=== PATIENT | female | born 1950 | race Caucasian/White ===

== ENCOUNTER 2023-10-28 08:09 | Day surgery (SDC) | payer OTHER, SELFPAY ==
[2023-10-25 12:38] VITALS: BMI 20.7
[2023-10-28] VITALS (13 sets, daily range): BP systolic 105–135; BP diastolic 50–72; PULSE 53–103; RESP 12–18; TEMP 35.8–36.8; O2SAT 98–100; BMI 20.7
--- NOTE | 2023-10-28 | DI.RAD.S_ITS ---
PROCEDURE: XR HIP W PEL IF DONE RT 2V INDICATIONS: RT ANTERIOR HIP TECHNIQUE: 2 view(s) of the hip acquired. COMPARISON: [facility], [place], XR HIP W PEL IF DONE RT 2V, 10/28/2023, 12:08. FINDINGS: Bones: Patient is status post right hip arthroplasty, with hardware components in expected positions. The hip joint appears congruent. The visualized bony structures appear intact. Soft tissues: Overlying postoperative changes are noted. No suspicious soft tissue densities. IMPRESSION: Expected post-operative appearance of a hip arthroplasty. Dictated by: Garcia Hernandez M.D. on 10/28/2023 at 18:49 Approved by: Garcia Hernandez M.D. on 10/28/2023 at 18:49
--- NOTE | 2023-10-28 07:50 | DI.RAD.S_ITS ---
PROCEDURE: XR HIP W PEL IF DONE RT 2V INDICATIONS: KERI TECHNIQUE: Intraoperative views during right hip arthroplasty. COMPARISON: None. FINDINGS: Bones: Intraoperative views during right hip arthroplasty demonstrate expected location hardware. IMPRESSION: Intraoperative views during right hip arthroplasty demonstrate expected location hardware. Dictated by: Luis Adams M.D. on 10/30/2023 at 10:37 Approved by: Luis Adams M.D. on 10/30/2023 at 10:37
--- NOTE | 2023-10-28 09:43 | PM.PREOP ---
Pre-operative Note Interval Note History & Physical reviewed/Exam performed by Physician: Yes Changes to H&P: No
[2023-10-28] MEDS: ACETAMINOPHEN 325 MG TABLET 975 MG PO (10:22)
[2023-10-28] MEDS: LACTATED RINGERS 1,000 ML 84 ML IV ×2 (10:22→12:54)
[2023-10-28] MEDS: MELOXICAM 7.5 MG TABLET PO (10:23)
[2023-10-28] MEDS: PHENYTOIN ER 100 MG CAPSULE PO ×3 (10:24→20:47)
[2023-10-28] MEDS: PRIMIDONE 50 MG TABLET 250 MG PO ×3 (10:33→20:48)
[2023-10-28] MEDS: CEFAZOLIN 2 GM/100 ML PREMIX 100 ML IV ×2 (11:20→19:56)
[2023-10-28] MEDS: TRANEXAMIC ACID 1,000 MG VIAL 1000 MG INJ ×2 (11:26→13:15)
--- NOTE | 2023-10-28 11:52 | SUR.OPER ---
Supine on padded [place] table with bilateral legs secured in padded positioning boots and suspended in positioning spars, operative leg in traction per surgeon. Head on one pillow. Arms on non-operative side secured on padded armboards <90 degrees abduction. Padded perineal post in place per surgeon.
[2023-10-28] MEDS: ROPIVACAINE/EPI/CLONIDINE/KET 50 ML SYRINGE INJ (12:03)
[2023-10-28] MEDS: EPINEPHrine 1 MG/ML TOP (12:05)
--- NOTE | 2023-10-28 13:11 | P.OP_ITS ---
Operative Date/Time/Diagnoses Date of procedure: 10/28/23 Pre-op diagnosis: Right hip osteoarthritis Post-op diagnosis: same Procedure & Clinicians Procedure: Cemented right total hip arthroplasty through anterior approach Same procedure as scheduled: Yes Surgeon: Leander Borges Senior Net Web Developer: Nisha Capellan Anesthesia Type: Spinal, Sedation and Local Operative Notes Estimated Blood Loss (mL): 250 Procedure in detail: Right Hybrid Direct Anterior Depuy Total Hip Arthroplasty with Uncemented Acetabular Component and Cemented Femoral Component: Implants: * [place] Gription size 54 cup?with 2 screws (40 mm, 15 mm) * C Stem femoral stem size 3 high offset? * 36 mm +8.5 ceramic femoral head? Procedure Summary: This 73-year-old female patient had a history of a pubic ramus fracture from a ground level fall. As this is diagnostic of osteoporosis I therefore recommended cemented fixation on her femoral side during her total hip arthroplasty today. Intraoperatively I noted poor bone quality as anticipated. I therefore utilized to screws on the acetabular side despite appropriate pinch fit with her 54 mm cup which was under reamed by 1 mm. I broached and calcar planed prior to my initial trialing and found that due to her very poor bone quality the broach had sunk further than I had planned for based on my neck cut. This resulted in the hip being slightly short, consistent with her preoperative condition. I therefore cemented the stem slightly proud to add an additional 5 mm and utilized a +8.5 head to regain additional length. I found that this was hard to reduce indicating she had been significantly lengthened as she was short preoperatively. Leg lengths were appropriate on an AP fluoroscopic image with a long metal bar positioned along the transitional line to limit the affected fluoroscopic distortion on interpretation of leg lengths. Procedure in Detail: This patient was seen preoperatively and evaluated for hip pain which was refractory to numerous nonoperative treatment modalities. Their hip pain correlated with radiographic changes demonstrating significant degeneration in the hip joint. The risks and benefits of continued nonoperative management versus operative management were discussed at length and all of the patient?s questions were answered. Additional educational materials providing further details beyond our discussion in clinic were provided via a publicly available patient education video which included the incidence of medical complications associated with total hip arthroplasty, reasons for revision following total hip arthroplasty, and patient satisfaction rates following total hip arthroplasty. That video can be accessed at [email or web address] . With this understanding of the risks inherent to the procedure, the patient elected to move forward with operative management. Following preoperative optimization, the patient was scheduled for surgery. The patient was met in the preoperative holding area the day of the procedure and all questions were answered. The patient?s nares were swabbed with betadine in order to decolonize them from MRSA. Informed consent was signed and the right limb was marked with indelible ink.? The patient was brought back to the operating room where anesthesia was induced. The patient was transferred to the Husser table and all bony prominences were padded. The operative site was prepped and draped in the usual sterile fashion. Prior to incision, tranexamic acid and cefazolin were administered. Operative templating images were displayed demonstrating the anticipated implant sizes and correct operative extremity. A timeout procedure was performed verifying the patient?s identity, medical comorbidities, allergies, relevant medications, anesthesia type and the surgical plan. All present were in agreement. The assistance of a physician executive sales assistant was required for positioning, room setup, soft tissue retraction and wound closure. Without this assistance, the procedure would have been significantly more challenging and time consuming.?? A direct anterior approach to the hip was utilized. This was performed with a longitudinal incision through a Heuter interval. The incision was planned 2 cm distal and 2 cm lateral to the ASIS extending towards the lateral patella, in line with the muscle body of the TFL. Following incision, the subcutaneous tissue was dissected while taking care to avoid injury to the lateral femoral cutaneous nerve. The fascia overlying the TFL was identified by dissecting off the overlying fat and identifying perforating vessels to the TFL. The TFL fascia was incised and dissected away from the medial border of the TFL. A cobra retractor was placed over the superior femoral neck between the abductors and the hip capsule and used to reflect the TFL laterally. A [place] self-retainer was then placed in the distal aspect of the wound between the TFL and the rectus femoris. This was tensioned to open up the direct anterior interval and the lateral circumflex vessels were identified and coagulated using electrocautery. The floor of the TFL fascia was incised, exposing the pericapsular fat overlying the hip capsule. A second cobra retractor was placed on the inferior femoral neck. A double-bent soft tissue retractor was placed on the anterior wall of the acetabulum and used to tension the reflected head of rectus femoris, which was then released in order to limit soft tissue tension. A capsulotomy was made in the midline of the anterior hip capsule in line with the femoral neck ending at the vastus tubercle. The double-bent retractor was removed in order to limit the amount of time that a soft tissue retractor remained on the anterior wall and protect the femoral nerve. Tag stitches were placed in the superior and inferior leaflets of the hip capsule. An [place] soft tissue retractor was introduced over the tag stitches and tensioned in the interval between the rectus femoris and the TFL in order to retract and protect those muscles. The cobra retractors were replaced intracapsularly, with one over the superior neck in the pocket created by the base of the greater trochanter and the other on the femoral head. The capsulotomy was extended laterally to the base of the greater trochanter and medially to the lesser trochanter. This required externally rotating the hip. Once the lesser trochanter had been identified, a neck cut was planned according to measurements from preoperative templating. A ruler was cut at the length measured between the superior aspect of the lesser trochanter and the collar of the prosthesis. This line was extended towards the inferior aspect of the lateral cobra retractor to plan a cut which would leave minimal residual femoral neck laterally. The neck was cut at 60 degrees of external rotation along that line. A second cut was performed to remove a large napkin ring and facilitate head extraction. The napkin ring cut and femoral head were removed.?? A broad anterior wall retractor was placed between the labrum and the anterior capsule so that the anterior capsule would prevent capturing and pinching the femoral nerve anteriorly. An additional retractor was placed on the posterior wall. External rotation and traction were applied through the Husser table so that the cut surface of the femoral neck would not restrict access to the acetabulum. The labrum was excised sharply and the pulvinar was excised with electrocautery to limit bleeding from branches of the obturator artery. Acetabular reamers were selected based on preoperative templating and measurements of the excised femoral head. These were introduced into the acetabulum. Fluoroscopy was utilized to replicate a standing AP pelvis radiograph by centering over the pelvis, rotating until there was appropriate symmetry between the obturator foramen, and introducing caudal tilt to match the position of the pubic symph ysis relative to the sacrococcygeal junction according to the patient?s anatomy. Fluoroscopy was utilized to ensure appropriate reaming depth. Once satisfied with the reaming depth corresponding to the preoperative template and the pinch fit between the columns, an appropriate sized acetabular cup was selected which would provide 1 mm of press-fit. This cup was introduced and manipulated until appropriate abduction and anteversion angles were obtained with careful attention to appropriate abduction and anteversion angles as evaluated by the position of the cup relative to the anterior and posterior bonilla of the acetabulum and the AP fluoroscopy which recreated the patient?s standing radiograph. The cup was impacted into place. Two screws were placed to provide additional fixation. Peripheral osteophytes were removed. The acetabular liner was then placed with care to ensure locking of the locking mechanism.? Attention was then turned to the femur. All retractors were removed, traction was released, a retractor was placed in the interval between the hip capsule and the gluteus minimus, and the hip was externally rotated to 90 degrees. Traction was applied through the Husser table to tension the lateral capsule and this was released using electrocautery. Traction was released and a [place]er hook was placed posteriorly around the proximal femur at the level of the vastus ridge. The tab le height was lowered in order to restrict the tension on the anterior structures during hip hyperextension to limit the risk of femoral nerve palsy. With traction off and the hip at 90 degrees of external rotation, the hip was hyperextended and adducted while manually elevating the femur away from the acetabulum with the Husser hook to ensure it would not be caught behind the greater trochanter. An asymmetric retractor was placed over the calcar and a broad double-pronged retractor was placed over the greater trochanter. The tag stitch capturing the lateral leaflet of the capsule was moved to the medial side, leaving the conjoined and piriformis tendons isolated in the face of the greater trochanter. The hip was externally rotated and elevated. A release of the conjoined tendon was necessary in order to obtain adequate exposure for broaching. The canal was opened with an opening broach and a rasp was used to remove cancellous bone. A rongeur was used to remove the residual lateral bone at the base of the greater trochanter to avoid placing the stem in varus. The femur was then broached to the appropriate sized stem yielding good rotational fit and fill of the canal as well as appropriate version of the stem trial. Neck and head trials were placed, all retractors were removed and the hip was returned to neutral abduction and extension. I then reduced the hip. Initial trialing was performed with a size 3 broach, a high offset neck and a +8.5 head. I initially manually externally rotated the hip and found no instability. I then locked the hip in 45 degrees of external rotation and dropped it to the floor with traction off which demonstrated no instability. An AP pelvis fluoroscopic image matching the preoperative standing radiograph with both lesser trochanters visible and both hips in 40 degrees of external rotation demonstrated the operative side was short relative to the nonoperative side. AP and lateral hip fluoroscopic images were obtained to evaluate the broach size which demonstrated grossly appropriate broach positioning within the femur. The hip was dislocated and I returned to the broaching position. Based on my evaluation during initial trialing I planned to cement the stem slightly proud and then trial with a +8.5 head to ensure that that combination resulted in adequate scientology of the leg length given the relatively low position of the broach relative to my templated neck cut.. I then returned to the broaching position and prepared for cementation. Prior to cementation I irrigated the canal, placed a cement restrictor, irrigated the ca nal again, placed epinephrine-soaked vaginal packing with a whistle-tip catheter, and removed the whistle-tip catheter after insertion of cement. Cement was allowed to dry. The definitive stem was placed and the trunnion was cleaned and dried. I placed a ceramic head onto the trunnion and impacted it into place on the Osei taper.?? All retractors were removed and the hip was reduced. A dilute mixture of betadine and peroxide was used to bathe the soft tissues during final fluoroscopic assessment. Appropriate component positioning was confirmed on an AP pelvis radiograph with the operative and nonoperative legs in 40 degrees of external rotation, evaluating leg length and offset. Appropriate stem fill was evaluated on AP and lateral hip radiographs. No fractures were identified on these radiographs. There was no hip instability with maximum external rotation as well as a 45 degree drop test. The hip was copiously irrigated with pulse lavage. The capsule was closed with absorbable interrupted suture. The TFL fascia was closed with barbed suture while carefully protecting the lateral femoral cutaneous nerve from entrapment. A mixture of Ropivacaine, Epinephrine, Clonidine and Toradol was infiltrated throughout the soft tissues. The skin was closed with 2-0 and 3-0 sutures. Surgical glue was applied and a soft dressing was placed.??The sponge, instrument and needle counts were reported as being correct at the end of the case.??No obvious complications occurred. The patient was transferred from the Husser table back to a stretcher. The patient emerged from anesthesia without difficulty and was taken to the PACU in a stable condition.? Plan for aftercare: * Anterior hip precautions * Weightbearing as tolerated * Aspirin 81 twice per day for DVT prophylaxis * Anticipate discharge home tomorrow. Patient to remain in hospital overnight given her history of syncope to ensure we limit the risk of any falls * Change into normal clothes upon arrival on the hospital floor * Mobilize in the halls as much as is logistically possible. If physical therapy is unavailable for mobilization, then patient should mobilize with nursing staff * Multimodal pain regimen with no IV opioids ordered * Apply ice machine to operative hip. Ensure that sufficient ice is in the chamber for the pad to remain cold * Follow up at [facility] in 2 weeks * Detailed postoperative instructions available at [email or web address]
[2023-10-28] MEDS: IBUPROFEN 600 MG TABLET PO ×2 (15:07→20:47)
[2023-10-28] MEDS: ACETAMINOPHEN 325 MG TABLET 650 MG PO ×2 (15:07→20:46)
--- NOTE | 2023-10-28 15:30 | PC.NURSE ---
Pt to room 213 via bed from PACU. Pt is sleepy but oriented and answers questions appropriately. Dsg to right hip is CDI. Pt still reports numbness to her BLE. IVF infusing as ordered. SCD's on and running. Bed alarm on for safety. Pt oriented to room, call light, bed controls, and tv controls. Pt agrees to call for assistance as needed and to not get up without help.
--- NOTE | 2023-10-28 16:39 | PC.NURSE ---
PATIENT STATES PAIN UNDER CONTROL, JUST HUNGRY AND COLD, INFORMED DINNER AT 1700 AND TWO WARM BLANKETS PLACED
[2023-10-28] MEDS: DOCUSATE 100 MG CAPSULE PO (20:47)
[2023-10-28] MEDS: ASPIRIN EC 81 MG TABLET PO (20:47)
[2023-10-28] MEDS: OXYCODONE IR 5 MG TABLET PO (20:48)
[2023-10-28] MEDS: FLUTICASONE 120 SPRAY/16 GM SPRAY.SUSP NASAL (22:07)
[2023-10-29] MEDS: ACETAMINOPHEN 325 MG TABLET 650 MG PO ×3 (02:01→13:13)
[2023-10-29] MEDS: IBUPROFEN 600 MG TABLET PO ×3 (02:01→13:14)
[2023-10-29] MEDS: OXYCODONE IR 5 MG TABLET PO ×2 (02:02→13:14)
[2023-10-29] MEDS: CEFAZOLIN 2 GM/100 ML PREMIX 100 ML IV (03:34)
[2023-10-29 05:37] LABS: Hematocrit 34.6 % (36-46); Hemoglobin 11.9 g/dL (12.0-16.0)
[2023-10-29 05:51] VITALS: BP 91/50; PULSE 72; RESP 18; TEMP 36.4; O2SAT 97
[2023-10-29 08:00] VITALS: BP 100/52; PULSE 84; RESP 10; TEMP 36.7; O2SAT 98
--- NOTE | 2023-10-29 08:45 | P.DS_ITS ---
History of Present Illness History of Present Illness Date Patient Seen: 10/29/23 Time Patient Seen: 08:45 Chief complaint: Right KERI anterior Narrative: Operative Date/Time/Diagnoses Date of procedure: 10/28/23 Pre-op diagnosis: Right hip osteoarthritis Post-op diagnosis: same Procedure & Clinicians Procedure: Cemented right total hip arthroplasty through anterior approach Same procedure as scheduled: Yes Surgeon: Leander Borges Belt Builder: Nisha Capellan Anesthesia Type: Spinal, Sedation and Local Operative Notes Estimated Blood Loss (mL): 250 Procedure in detail: Right Hybrid Direct Anterior Depuy Total Hip Arthroplasty with Uncemented Acetabular Component and Cemented Femoral Component: Implants: * [place] Gription size 54 cup?with 2 screws (40 mm, 15 mm) * C Stem femoral stem size 3 high offset? * 36 mm +8.5 ceramic femoral head? Discharge Providers Provider Discharge Date: 10/29/23 Primary care physician: Reagan Light PA-C Consults: 10/28/23 07:50 Consult to Anesthesiology Routine Comment: Consulting Provider: Anesthesiologist Reason for consultation: Regional block for post operative pain control 10/28/23 14:40 Consult to Discharge Planning Routine Comment: Consult to Occupational Therapy Evaluate & Treat Comment: Physician Instructions: Evaluate and treat Consult to Physical Therapy Evaluate & Treat Comment: Physician Instructions: post op KERI protocol Discharge provider: Leigh Koo PA-C Summary Hospital Course Discharge Diagnosis: Right hip osteoarthritis, s/p right total hip arthroplasty Hospital Course: Ms Arteaga'tejinder hospital course was unremarkable. On the morning of POD# 1, she was feeling well and wanted to go home. She was eating and voiding without difficulty and her pain was well controlled w/ oral medication. She had not yet worked w/ PT, but she had been OOB to the commode. Exam Vital Signs (past 8 hours): - 10/29/23 05:51 Temperature 97.5 F L Pulse Rate 72 Respiratory Rate 18 Blood Pressure 91/50 L Pulse Oximetry 97 Oxygen Flow Rate 0 Oxygen Delivery Method Room Air Oxygen Flow Rate 0 Narrative Exam Narrative: 4/5 hip flexors, quadriceps, hamstrings on right; 5/5 DF, PF, EHL. Sensation to light touch intact throughout RLE. Calf soft and compressible. Aquacel dressing CDI. Objective Labs 10/29/23 05:16 Labs: Laboratory Results - last 24 hr 10/29/23 05:16 Hgb 11.9 L Hct 34.6 L PFSH Medical History (Updated 10/25/23 @ 13:17 by Hannah Gutiérrez RN) Anxiety about health Easy bruisability Seizures Osteoarthritis Pubic ramus fracture Surgical History (Updated 10/29/23 @ 08:51 by Leigh Koo PA-C) History of carpal tunnel surgery of left wrist H/O left wrist surgery History of bladder surgery (~1998) Hx of bilateral cataract extraction (2021) Social History household members: none Smoking Status: Never smoker alcohol intake: current Discharge Assessment & Plan Assessment and Plan Assessment: Right hip osteoarthritis, s/p right total hip arthroplasty Plan of Treatment: Low BP today, fluid bolus ordered. She can discharge home later today if she meets goals w/ PT. ASA 81mg BID for VTE prophylaxis, multimodal pain control, outpt PT, f/u in office in 2 weeks as scheduled. Discharge Plan Discharge Plan Patient Disposition: Home Discharge orders & Medications Discharge Orders: Discharge (Order); Ordered 10/29/23 Ordered By: Leigh Koo Prescriptions: New oxycodone 5 mg Tablet 5 mg PO Q4-6H PRN (Reason: Pain, Severe (7-10)) Qty: 30 0RF acetaminophen 325 mg Tablet 650 mg PO Q6H Qty: 240 0RF aspirin 81 mg Tablet,Delayed Release (Dr/Ec) 81 mg PO BID Qty: 60 0RF meloxicam 7.5 mg tablet 7.5 mg PO BID PRN (Reason: mild to moderate pain) Qty: 60 0RF Rx Instructions: Take instead of ibuprofen ondansetron 4 mg Tablet,Disintegrating 4 mg PO Q6HR PRN (Reason: nausea and vomiting) Qty: 30 0RF Continued cetirizine [Zyrtec] 10 mg Tablet 10 mg PO DAILY phenytoin sodium extended 100 mg Capsule 100 mg PO TID primidone 250 mg Tablet 250 mg PO TID Discontinued ibuprofen 200 mg Tablet 400 mg PO BEDTIME PRN (Reason: Pain) Follow up/Referrals: Reagan Light PA-C [Primary Care Provider] - Leander Borges MD [Physician] - 11/09/23 11:10 am (Follow up w/ Fran Raman PA-C, at [facility] office in [place].) Diet/Activity/Treatments Diet: Diet as Tolerated Activity: Weightbearing as tolerated. Anterior hip precautions. Cold/Heat Therapy: Ice to hip as needed for pain. Skin/Wound/Dressing Care Report to your healthcare provider any signs of infection, such as:: chills, fever, night sweats, unusual drainage and unusual redness Dressing: May shower. Leave dressing in place until follow up in office. No bathing or otherwise soaking incision. Call the office if the dressing becomes saturated inside. Visit Report/Discharge Packet Instructions: DI for Hip Replacement, DI for Prescription Opioid Use Stand Alone Forms: Patient Portal/API, Surgery Discharge Discharge Data Primary Care Provider: Reagan Light Attending Provider: Leander Borges VTE Deep Vein Thrombosis/Pulmonary Embolism Present on Admission: No
[2023-10-29] MEDS: LACTATED RINGERS 500 ML 1000 ML IV (08:46)
[2023-10-29] MEDS: FLUTICASONE 120 SPRAY/16 GM SPRAY.SUSP NASAL (08:49)
[2023-10-29] MEDS: PRIMIDONE 50 MG TABLET 250 MG PO ×2 (09:04→13:14)
[2023-10-29] MEDS: DOCUSATE 100 MG CAPSULE PO (09:05)
[2023-10-29] MEDS: PHENYTOIN ER 100 MG CAPSULE PO ×2 (09:05→13:14)
[2023-10-29] MEDS: ASPIRIN EC 81 MG TABLET PO (09:05)
[2023-10-29] MEDS: LORATADINE 10 MG TABLET PO (09:05)
--- NOTE | 2023-10-29 09:30 | PT.IIE ---
Current Diagnoses Unilateral primary osteoarthritis, right hip (10/28/23) Presence of unspecified artificial hip joint (10/28/23) Surgery Performed Operation Date: 10/28/23 11:45 Actual Procedures p Total Hip Arthroplasty/Anterior Approach(Right) - Leander Borges MD Surgical History (Last Updated 10/25/23 @ 13:17 by Hannah Gutiérrez, RN) H/O left wrist surgery History of bladder surgery (~1998) History of carpal tunnel surgery of left wrist Hx of bilateral cataract extraction (2021) Medical History (Last Updated 10/25/23 @ 13:17 by Hannah Gutiérrez RN) Anxiety about health Easy bruisability Osteoarthritis Pubic ramus fracture Seizures Physical Therapy Inpatient Evaluation/Re-Eval M1 PT/OT-IP Prior Functional Status Start: 10/29/23 12:59 Freq: NEEDED Status: Active Protocol: Document 10/29/23 09:30 AB (Rec: 10/29/23 13:11 AB [id number]) Medical Review Prior Functional Status Medical History Reviewed Yes Communication able to make needs known Mobility and Gait pt stated that she was modified independent with all mobilities and ambulation using a FWW Social History Household Members none Living Arrangements Apartment/Condo Number of Floors (Floors) One Floor Number of Stairs To Enter/Railing? no steps to enter Home Environment Standard Height Toilet,Tub/ Shower Home Equipment Front Wheel Walker,Shower Seat with Backrest,Grab Bars In Shower Additional Social History Comment pt's daughter will be staying with her until Tuesday M2 PT-IP Current Condition Start: 10/29/23 12:59 Freq: NEEDED Status: Active Protocol: Document 10/29/23 09:30 AB (Rec: 10/29/23 13:11 AB [id number]) Physical Therapy Current Condition Current Condition Evaluation Date 10/29/23 Treatment Diagnosis s/p RTHA anterior; difficulty in walking Onset Date 10/28/23 M3 PT-IP Subjective Start: 10/29/23 12:59 Freq: NEEDED Status: Active Protocol: Document 10/29/23 09:30 AB (Rec: 10/29/23 13:11 AB [id number]) Subjective Physical Therapy Visit Type Type Initial Evaluation Visit Start Time 09:30 Visit Stop Time 10:30 Number of MULTIPLE SPINDLE ROUTER OPERATOR Visits 0 Physical Therapy Visit Comments Patient Comments requesting to use the toilet Therapy Pain Assessment Pain When Pain Assessed At Rest Pain Present Pain Present Pain Reported Location Right Hip Intensity 5 Scale Used Numeric (0 - 10) Pain Management Techniques Apply Cold,Distraction, Modification of Treatment,Re- positioning,Timing of Activity with Medications M4 PT-IP Mobility and Gait Start: 10/29/23 12:59 Freq: NEEDED Status: Active Protocol: Document 10/29/23 09:30 AB (Rec: 10/29/23 13:11 AB [id number]) PT-Bed Mobility Assessment Supine to Sit Supine to Sit Standby Assistance Sit to Supine Sit to Supine Standby Assistance PT-Transfer Assessment Sit to and From Stand Sit to and from Stand Contact Guard Assistance,1 Person Assistance,Use of Upper Extremities Equipment Transfer Assistive Device Gait Belt,Front Wheeled Walker Orthotic/Prosthetic Devices or Brace: No Transfers Transfer Destination Toilet Transfer Technique ambulated Transfer Ability Level of Assist Contact Guard Assistance,1 Person Assistance,Use of Upper Extremities Comments Mobility Comments pt supine in bed and daughter in room. obtained PLOF and home set up from pt and daughter. post-op folder provided and reviewed contents . educated pt and daughter regarding pt's R hip anterior precautions. pt unable to recall precautions and unable to comprehend. repeated and pt continues to not remember. pt completed supine to sit SBA and cues. pt able to sit on EOB CGA. pt requested to use the toilet. completed sit to stand CGA and ambulated to the toilet using FWW CGA ~ 12 ft. cued for hip precautions. pt needing repeated one step cues with all tasks. completed toileting SBA. sit to stand from the toilet using grab bar CGA and pt ambulated towards the sink using FWW CGA. max cues with precautions . pt tends to twist during turning. pt able to maintain standing balance SBA while completing handwashing. pt ambulated to the chair using FWW CGA. pt sat and rested on the chair. caregiver training conducted. educated daughter on how to use safety belt and how to assist pt. daughter was able to put safety belt on pt. assisted pt with sit to stand and ambulation in room using FWW ~ 30 ft CGA. daughter was able to provide cues to pt. pt sat on EOB. completed sit to supine SBA. pt agreed to get up again and sit on the chair. supine to sit SBA and step transfer to chair using fWW cGA. positioned pt on the chair. call light and table placed within reach. asked pt if her son can assist her when daughter leaves. pt is not sure. Gait Assessment Gait Gait Assistance Required: Contact Guard Assist Distance (Feet) 30 Able to Maintain Weight Bearing Status Yes During Gait Assistive Devices Assistive Device Gait Belt,Front Wheeled Walker Orthotic/Prosthetic Devices or Brace: No Gait Deviations General Gait Pattern Antalgic,Decreased Feet Clearance Factors Limiting Gait Function Factors Limiting Gait Function Decreased Activity Tolerance, Decreased Strength,Difficulty Following Directions,Limited Range of Motion,Pain,Poor Balance,Poor Safety Awareness PT-Balance Assessment Sitting Balance and Reactions Static Sitting Balance Ability Normal Dynamic Sitting Balance Ability Good Standing Balance and Reactions Static Standing Balance Ability Fair Dynamic Standing Balance Ability Fair Device Used FWW M5 PT-IP Objective Assessments Start: 10/29/23 12:59 Freq: NEEDED Status: Active Protocol: Document 10/29/23 09:30 AB (Rec: 10/29/23 13:11 AB [id number]) Orientation Orientation/Cognition Level of Alertness Alert Orientation Name Language Function Ability No Deficits Noted Safety Awareness Decreased Safety Awareness Memory Description Short Term Impaired,Halfway Impaired Gross Range of Motion Lower Extremity ROM Assessment Within Functional Limits Strength Lower Extremity Strength Assessment Right Impaired Hip 3+/5 Knee 4-/5 Coordination Assessment Gross Coordination Gross Coordination WNL Sensation Assessment Sensation Gross Sensation WNL Muscle Tone Muscle Tone WNL Yes M6 PT-IP Treatment Start: 10/29/23 12:59 Freq: NEEDED Status: Active Protocol: Document 10/29/23 09:30 AB (Rec: 10/29/23 13:11 AB [id number]) Physical Therapy Treatment Education Education Provided Precautions,Weight Bearing Status,Post-Op Packet,Safety M7 PT-IP Assessment and Plan Start: 10/29/23 12:59 Freq: NEEDED Status: Active Protocol: Document 10/29/23 09:30 AB (Rec: 10/29/23 13:11 AB [id number]) PT Summary Assessment and Plan Potential Rehabilitation Potential Fair Status of Condition at Evaluation Stable Summary Impairments Pain,ROM,Strength,Balance, Coordination,Sensation,Tone, Cognition,Bed Mobility, Transfers,Gait,Activity Tolerance Assessment Summary pt is a 73 y/o F s/p R KERI anterior approach POD 1. pt with R hip anterior precautions and is WBAT. pt requiring CGA with mobility but requiring max cues for precautions and safety. daughter will stay with pt for a few days to assist her at home. pt stated that she has outpt PT set up. Goals Bed Mobility Goal Independent Transfer Goal Independent,Front Wheeled Walker Gait Goal Independent,Front Wheel Walker Gait Distance 200 Days to Meet Goals 5 Frequency of Treatment Frequency Of Treatment Twice a Day Treatment Plan Physical Therapy Treatment Plan Bed Mobility Training,Transfer Training,Gait Training, Therapeutic Exercise,Balance Retraining,Post Op Education, Discharge Planning,Hot or Cold Pack,Neuromuscular Re-ed, Coordination Retraining,Manual Therapy Precautions Anterior Hip Precautions No Hip Extension,No Hip External Rotation Weight Bearing Status Weight Bearing Status Weight Bear as Tolerated Allowed Weight Bearing Amount (enter % RLE WBAT or #) (%) Recommendations To Nursing Amount of Assist Needed 1 Person Assist Discharge Recommendations PT Discharge Recommendations Home with 11/10 Assist Available,Outpatient PT Transportation Needs at Discharge Private Vehicle
--- NOTE | 2023-10-29 11:45 | CM.DANOTE ---
Initial DCP Assessment Visit Note Reviewed EMR and team rounds for status updates. Met with pt/dtr at bedside to introduce self and role, pt was found to be alert/oriented, sitting upright in bed, expressing feeling anxious about discharging home and managing her walker. She requested Home Health for PT/OT assistance in safe transfers, mobilizing with a walker. Referral sent to [facility], per her preference. Pt has been living modified independently in her own apartment in [place], uses a walker at baseline due to chronic hip/leg pain and weakness. Her dtr is here to transport her back home this afternoon after lunch. BOOK STORE ASSOCIATE did order Home Health, no further DCP needs are identified at this time. Payor: [facility] Attending: Dr. Borges Pt is a 73 year-old F post-op day 1 from a total R-hip arthroplasty surgery. She did work with PT, however is feeling like she needs more guidance with mobilizing at home. Pt shares that she has been out of work since she has been needing to use a walker, and can't return to work with a walker. She has been unable to go for walks, shop, or do her housework for some time due to pain/weakness. Dtr has flown in from [place] and is planning to take care of her through next Tuesday. Pt does not have all of the DME needed at home for postoperative recovery needs, however she will be working on this once she gets home. She has been medically cleared for discharge. Discharge Planning/Care Management CM Discharge Assessment Start: 10/29/23 10:56 Freq: Status: Active Protocol: Document 10/29/23 10:56 DPL (Rec: 10/29/23 11:40 DPL [id number]) Discharge Planning Assessment Assigned Equine Science Instructor SABI Bowden Advance Directives? No Advance Directives on File No History Provided By Patient,Medical Record Has Patient been admitted in last 30 No days? Prior Living Arrangements Apartment/Condo Household Members none Comment Pt's dtr has flown in from [place] in order to care for pt post-dc. Type of transporation used prior to Drives own vehicle admit Independent with ADL's No: modified independent with a FWW. Caregiver for Another No DME Already Rented / Owned FWW / Walker Patient/Family Preference Home with Home Health Barriers to Discharge No Referrals Initiated Home Health Additional Comment [facility] If patient plan is home with home health Yes : Has signed face to face form been completed? Medicare Choice List Provided Yes Medicare choice list reviewed on patient electronic tablet with SNF/HH Preference [facility] Has Agency SNF been contacted Yes Whiteboard Updated in Patient Room with Yes name and ext. # of Equine Science Instructor Review Status In Process Please Provide Date Initial DC 10/29/23 Assessment Was Performed Pre-Anesthesia Assessment Start: 10/25/23 12:38 Freq: Status: Complete Protocol: Document 10/25/23 12:38 CAB (Rec: 10/25/23 13:33 CAB [id number]) Pre-Anesthesia Assessment Preferred Name Pat Patient Information Reviewed Via Phone Assessment Assessment Completed With Patient Diagnostic Results BMP/CMP,CBC,EKG Comment Outside labs/EKG scanned Primary Care Provider Reagan Light Seen Specialist in Last 12 Months Yes Specialist Seen Opthamologist/Band Log Mill And Carriage Operator, Orthopedist Primary Language Setswana Plant Maintenance Manager Required No Height 170.18 cm Weight 59.874 kg Body Mass Index (BMI) 20.7 Hearing Ability Normal Visual Assist Glasses Dentition Type Teeth, Natural Present Barriers to Learning None Hx Anesthesia Reactions No Hx Family Anesthesia Reaction No Hx Malignant Hyperthermia No Hx Blood Transfusions No Anesthesia Review Requested No Branch Operations Manager No alcohol intake current alcohol intake frequency holidays/special occasions only Smoking Status Never smoker Substance Use Type does not use Pain Present Pain Reported Musculoskeletal Symptoms Abnormal Gait,Back Pain, Difficulty Walking,Joint Pain, Muscle Weakness History of Falling (Recent or History of Yes ) Patient is completely paralyzed or No completely immobile Prosthesis or Orthotic Device Cane,Front Wheel Walker Mental Status Oriented to own ability Is patient on oxygen? No Does patient have CARVALHO/SOB No Hx Sleep Apnea No Currently Taking a Beta Uriah No Hx Chest Pain No Hx SOB No Hx Syncope or Dizziness Yes: Occasional lightheadedness from sitting to standing Anti-Coagulant Therapy No Has a Conference Manager No Cardiac Testing No Hx Pacemaker/ICD No Pacemaker Rep Required? No Cardiac Clearance Received No Diet Type At Home Regular Dysphagia No Gastrointestinal Symptoms None Urinary Catheter Present No Hx Urinary Self Catheterization No Diabetes No HgbA1C 5.4 Date 12/31/22 Patient No Lactating No Hx Drug Resistant Organism No Presence of External or Internal Medical Yes: Pito eye IOLs Devices Marital Status Lives With none Current Living Arrangements Apartment/Condo Number of Floors (Floors) One Floor Support System Child/Children Does the Patient Have Assistance After Yes: Daughter will fly in from [place] to assist with care at DC Patient Discharge Plan Description Return Home Comment Pt advised overnight length of stay per surgeon Feels Safe in Current Environment Yes Been Physically Hurt or Threatened By a No Person in Current Environment Do you have thoughts of harming yourself None or others? Are you currently considering suicide? No Do you have a plan to hurt yourself or No Plan others? Do You Have Any Spiritual Beliefs That No May Affect Your HC Choices? Do You Have Any Cultural Practices That No May Affect Your HC Choices? Comment Gnosticism Who Can We Speak to About Patient's Care Family, friends Identifying Code for Release of Patient Declines to issue Information Health Care Proxy/Next of Kin Darline (Daughter) Wander (son) Health Care Proxy Phone Number Darline (Daughter) pt will update dos. Wander: (son) pt will update dos Emergency Contact Name Darline (Daughter) Wander (son) Advance Directives? No Requested Patient Bring Advanced No Directives DOS PAC Instructions Assistance for 24 hours post- op,Do not shave/clip surgical site,Durable medical equipment ,Medications to take/avoid, Nasal antibiotic,No ETOH/ petroleum product on skin DOS, NPO,Post-op transportation,Pre -surgical wash,Sensory aids, Sturdy shoes/comfortable clothes,Do not bring valuables and remove jewelry
[2023-10-29 12:00] VITALS: BP 108/58; PULSE 81; RESP 14; TEMP 36.5; O2SAT 98
== END 2023-10-29 13:10 | disposition home or self-care (01) ==
LOC: OR 08:10 → AC 08:11
PROVIDERS: PCP Physician Assistant; Referring Provider Orthopaedic Surgery Adult Reconstructive Orthopaedic Surgery; Visit Provider Orthopaedic Surgery Adult Reconstructive Orthopaedic Surgery
PROC: (CPT 27130; principal; 2023-10-28 11:45)
DX: M16.11 Unilateral primary osteoarthritis, right hip (principal)
CPT/HCPCS: 27130; 73502; 76000; 85014; 85018; 94762; 97161; 97530; C1776; J0171; J0690; J1100; J2250; J2405; J2704; J3010